=== PATIENT | female | born 1965 | race Caucasian/White ===

== ENCOUNTER 2021-03-18 15:48 | Observation (INO) ==
[2021-03-18] MEDS ORDERED: ONDANSETRON INJ 2 MG/ML 2 ML VIAL IV STA ×2 (16:55→20:56)
[2021-03-18] MEDS ORDERED: SODIUM CHLORIDE 0.9% 1000ML 1,000 ML IV ONE (16:55)
--- NOTE | 2021-03-18 16:58 | Emergency Department Note ---
Impression & Plan Acute appendicitis, Abdominal pain, Leukocytosis ED Provider Note NAME: MARIAH COHN AGE: 55 SEX: F : 1965 ARRIVES VIA: Walk-In INFORMANT: Patient ED PROVIDER(S): Ryley Chang DO CHIEF COMPLAINT: Abdominal pain HPI: Patient is a 55-year-old female who presents the ER for right mid abdominal pain. She notes she has been having nausea and upset stomach with eating for the past 2 weeks. Since this past Thursday she has been having severe pain righ t mid belly. Pain is a 7 out of 10. Referred in by PCP. She admits to nausea and vomiting. She is unable to keep anything down. Last bowel movement was yesterday. Denies any dysuria, urgency, or frequency. Last menstrual period was several years ago. No fevers. ROS: See above HPI for pertinent positives & negatives. A total of 10 systems reviewed and were otherwise negative. PAST MEDICAL HISTORY:See Below PAST SURGICAL HISTORY:See Below FAMILY HISTORY:See Below SOCIAL HISTORY:See Below HOME MEDICATIONS:See Below ALLERGIES:See Below VITALS:See Below PHYSICAL EXAMINATION: GENERAL: Sitting up in bed, alert, Ill-appearing, disheveled, moderate distress EYE EXAM: normal conjunctiva. OROPHARYNX: no exudate, no erythema, lips, buccal mucosa, and tongue normal and mucous membranes are moist NECK: supple, no nuchal rigidity, no adenopathy, non-tender LUNGS: Clear to auscultation. Normal chest wall mechanics HEART: no murmurs, S1 normal and S2 normal ABDOMEN: abdomen soft, Tender palpation right mid belly, normo-active bowel sounds, no masses, no rebound or guarding. UPPER EXTREMITIES: upper extremities are grossly normal. LOWER EXTREMITIES: No pitting edema. NEURO EXAM: Normal sensorium, cranial nerves II-XII grossly intact, normal speech, no gross weakness of arms, no gross weakness of legs. MEDICAL DECISION MAKING: Patient is a 55-year-old female who presents ER for right lower quadrant abdominal pain. IV was established blood work was obtained. Labs show leukocytosis 15,000. No significant anemia.BMP with LFTs bilirubin and lipase is unremarkable. UA was contaminated. Will not treat. Covid was negative. CT abdomen pelvis shows appendicitis. Patient was given IV fluids, morphine and cefoxitin. Patient was updated bedside. Discussed with Tonio Millard from general surgery who evaluated the patient admit the patient will likely take to the OR. Triage Nursing notes reviewed. Limited review of prior medical records performed Vital Signs: reviewed and remarkable for HTN and tachy Differential diagnosis: Differential diagnoses includes but is not limited to gastritis, peptic ulcer di sease, GERD, gallbladder disease, pancreatitis, small bowel obstruction, acute coronary syndrome, pericarditis, ischemic bowel, irritable bowel disease, irritable bowel syndrome, appendicitis, diverticulitis, malignancy, hernia, urinary tract infection, torsion, perforation, trauma, infectious. ER treatment provided: See below Diagnostics interpreted by me: ECG: none Cardiac Monitoring: An order was placed for continuous cardiac monitoring. The monitor shows a rate of 100 with sinus rhythm. Laboratory studies: As stated above and show below. Imaging studies: CT abdomen pelvis confirms appendicitis Consultation(s): Discussed with Tonio Millard for further evaluation Procedures: none Critical Care: None Past Med/Surg History Medical History (Updated 03/18/21 @ 21:54 by Ryley Chang DO) Asthma Cigarette smoker Morbid obesity Social History Smoking Status: Current every day smoker Tobacco Type: Cigarettes Feels Safe at Home: Yes Allergies Allergies Allergy/AdvReac Type Severity Reaction Status Date / Time No Known Allergies Allergy Verified 03/18/21 18:28 Home Meds Home Medications Medication Instructions Recorded Confirmed acetaminophen 500 mg tablet 1,000 mg PO DIRECTED PRN 03/18/21 03/18/21 (Tylenol Extra Strength) albuterol sulfate 90 mcg/actuation 2 puff INHALATION Q4H PRN 03/18/21 03/18/21 aerosol inhaler (Ventolin HFA) fluticasone 250 mcg-salmeterol 50 1 inh INHALATION BID PRN 03/18/21 03/18/21 mcg/dose blistr powdr for inhalation (Wixela Inhub) Results & Data (ED) Vital Signs Vital Signs - 24 hr 03/18/21 16:04 03/18/21 17:14 03/18/21 17:30 Temperature 36.6 C Temperature Source Temporal Artery Scan Pulse Rate 102 H 96 H Pulse Rate [Radial] 100 H Pulse Rate from SpO2 Sensor 96 H Respiratory Rate 20 20 22 Respiratory Effort / Characteristics Non-Labored Non-Labored Respiratory Depth Normal Normal Respiratory Pattern Regular Blood Pressure 172/110 H 157/99 H Blood Pressure [Left Arm] 150/91 H Blood Pressure Mean 130 118 Blood Pressure Mean [Left Arm] 110 Pulse Oximetry 96 98 94 Oxygen Delivery Method Room Air Room Air Sepsis Recent Fever Within 48 Hours No Sepsis New/Unexplained Change in Mental Status N/A Sepsis Action Taken by Nursing No Action Required 03/18/21 18:30 03/18/21 18:44 03/18/21 18:45 Temperature Temperature Source Pulse Rate 94 H 89 89 Pulse Rate [Radial] Pulse Rate from SpO2 Sensor 94 H Respiratory Rate 23 19 20 Respiratory Effort / Characteristics Respiratory Depth Respiratory Pattern Blood Pressure 159/105 H 159/105 H 171/121 H Blood Pressure [Left Arm] Blood Pressure Mean 123 123 137 Blood Pressure Mean [Left Arm] Pulse Oximetry 95 94 94 Oxygen Delivery Method Room Air Room Air Room Air Sepsis Recent Fever Within 48 Hours Sepsis New/Unexplained Change in Mental Status Sepsis Action Taken by Nursing 03/18/21 18:46 03/18/21 20:10 03/18/21 20:30 Temperature Temperature Source Pulse Rate 90 96 H 95 H Pulse Rate [Radial] Pulse Rate from SpO2 Sensor Respiratory Rate 18 21 24 Respiratory Effort / Characteristics Respiratory Depth Respiratory Pattern Blood Pressure 173/123 H 174/122 H 176/131 H Blood Pressure [Left Arm] Blood Pressure Mean 139 139 146 Blood Pressure Mean [Left Arm] Pulse Oximetry 95 96 95 Oxygen Delivery Method Room Air Room Air Room Air Sepsis Recent Fever Within 48 Hours Sepsis New/Unexplained Change in Mental Status Sepsis Action Taken by Nursing 03/18/21 21:00 03/18/21 21:30 Temperature Temperature Source Pulse Rate 93 H 93 H Pulse Rate [Radial] Pulse Rate from SpO2 Sensor 93 H Respiratory Rate 14 35 H Respiratory Effort / Characteristics Respiratory Depth Respiratory Pattern Blood Pressure 187/118 H 164/122 H Blood Pressure [Left Arm] Blood Pressure Mean 141 136 Blood Pressure Mean [Left Arm] Pulse Oximetry 95 90 Oxygen Delivery Method Room Air Room Air Sepsis Recent Fever Within 48 Hours Sepsis New/Unexplained Change in Mental Status Sepsis Action Taken by Nursing Laboratory Data Result diagrams: 03/18/21 17:01 03/18/21 17:01 Lab Results 03/18/21 03/18/21 03/18/21 Range/Units 17:01 17:01 17:01 WBC 15.97 H (4.8-10.8) K/uL RBC 5.22 (4.2-5.4) M/uL Hgb 16.9 H (12.0-16.0) g/dL Hct 49.5 H (37-47) % MCV 94.8 (80-100) fL MCH 32.4 (25-34) pg MCHC 34.1 (32-36) g/dL RDW Std Deviation 43.8 (36.4-46.3) fL RDW Coeff of [place] 12.7 (11.5-14.5) % Plt Count 256 (130-400) K/uL MPV 12.1 H (7.4-10.4) fL Sodium 139 (136-145) mmol/L Potassium 3.6 (3.5-5.1) mmol/L Chloride 101 (98-107) mmol/L Carbon Dioxide 31 (21-32) mmol/L Anion Gap 7 (3-11) BUN 16 (6-23) mg/dl Creatinine 0.95 (0.6-1.2) mg/dl Est Cr Clr Drug Dosing 72.5 ml/min Est GFR ( Amer) 77.6 ml/min Est GFR (Non-Af Amer) 67.0 ml/min BUN/Creatinine Ratio 16.8 (10-20) Glucose 107 H (70-99(Fasting)) mg/dl Calcium 9.5 (8.5-10.1) mg/dl Total Bilirubin 0.8 (0.2-1.0) mg/dl Direct Bilirubin 0.1 (0-0.2) mg/dl AST 15 (13-39) U/L ALT 17 (7-52) U/L Alkaline Phosphatase 64 (34-104) U/L Total Protein 7.3 (6.0-8.3) gm/dl Albumin 4.1 (3.4-5.0) gm/dl Lipase 25 (11-82) U/L Urine Color Urine Appearance (Clear) Urine pH (4.5-7.5) Ur Specific [place] (1.000-1.030) Urine Protein (Negative) Urine Glucose (UA) (Negative) Urine Ketones (Negative) Urine Blood (Negative) Urine Nitrite (Negative) Urine Bilirubin (Negative) Urine Urobilinogen (Negative) Ur Leukocyte Esterase (Negative) Urine WBC (Auto) (0-5) /hpf Urine RBC (Auto) (0-4) /hpf U Hyaline Cast (Auto) (0-5) /lpf U Epithel Cells (Auto) (0-5) /lpf Urine Bacteria (Auto) (Negative) SARS-CoV-2, RNA, NAAT (NEGATIVE) 03/18/21 03/18/21 Range/Units 17:07 20:15 WBC (4.8-10.8) K/uL RBC (4.2-5.4) M/uL Hgb (12.0-16.0) g/dL Hct (37-47) % MCV (80-100) fL MCH (25-34) pg MCHC (32-36) g/dL RDW Std Deviation (36.4-46.3) fL RDW Coeff of [place] (11.5-14.5) % Plt Count (130-400) K/uL MPV (7.4-10.4) fL Sodium (136-145) mmol/L Potassium (3.5-5.1) mmol/L Chloride (98-107) mmol/L Carbon Dioxide (21-32) mmol/L Anion Gap (3-11) BUN (6-23) mg/dl Creatinine (0.6-1.2) mg/dl Est Cr Clr Drug Dosing ml/min Est GFR ( Amer) ml/min Est GFR (Non-Af Amer) ml/min BUN/Creatinine Ratio (10-20) Glucose (70-99(Fasting)) mg/dl Calcium (8.5-10.1) mg/dl Total Bilirubin (0.2-1.0) mg/dl Direct Bilirubin (0-0.2) mg/dl AST (13-39) U/L ALT (7-52) U/L Alkaline Phosphatase (34-104) U/L Total Protein (6.0-8.3) gm/dl Albumin (3.4-5.0) gm/dl Lipase (11-82) U/L Urine Color Dark Yellow Urine Appearance Clear (Clear) Urine pH 5.5 (4.5-7.5) Ur Specific [place] 1.029 (1.000-1.030) Urine Protein 1+ H (Negative) Urine Glucose (UA) Negative (Negative) Urine Ketones Trace H (Negative) Urine Blood 1+ H (Negative) Urine Nitrite Negative (Negative) Urine Bilirubin 1+ H (Negative) Urine Urobilinogen Negative (Negative) Ur Leukocyte Esterase Negative (Negative) Urine WBC (Auto) 10-30 H (0-5) /hpf Urine RBC (Auto) 5-10 H (0-4) /hpf U Hyaline Cast (Auto) 0 (0-5) /lpf U Epithel Cells (Auto) >30 H (0-5) /lpf Urine Bacteria (Auto) 2+ H (Negative) SARS-CoV-2, RNA, NAAT NEGATIVE (NEGATIVE) Administered Medications Lactated Ringer's (Lr) 1,000 mls @ 75 mls/hr IV .[id number] [id number] Stop: 04/17/21 20:44 Last Admin: 03/18/21 21:36 Dose: 75 mls/hr Documented by: [id number] Discontinued Medications Sodium Chloride (Nss 1000ml) 1,000 mls @ 999 mls/hr IV .[id number] ONE Stop: 03/18/21 17:55 Last Infusion: 03/18/21 18:10 Dose: 0 mls/hr Documented by: [id number] Admin: 03/18/21 17:09 Dose: 999 mls/hr Documented by: [id number] Cefoxitin Sodium (Mefoxin) 2,000 mg in 60 mls @ 100 mls/hr IV NOW STA Stop: 03/18/21 20:29 Last Infusion: 03/18/21 20:46 Dose: 0 mls/hr Documented by: [id number] Admin: 03/18/21 20:10 Dose: 100 mls/hr Documented by: [id number] Ioversol (Optiray 320 100ml) 94 ml IV ONCE ONE Stop: 03/18/21 19:05 Last Admin: 03/18/21 19:05 Dose: 94 ml Documented by: [id number] Morphine Sulfate (Morphine Sulfate 10 Mg/Ml Carp/Vial) 6 mg IV NOW STA Stop: 03/18/21 20:57 Last Admin: 03/18/21 21:14 Dose: 6 mg Documented by: [id number] Ondansetron HCl (Ondansetron Inj 2 Mg/Ml 2 Ml Vial) 4 mg IV NOW STA Stop: 03/18/21 16:56 Last Admin: 03/18/21 17:09 Dose: 4 mg Documented by: [id number] Ondansetron HCl (Ondansetron Inj 2 Mg/Ml 2 Ml Vial) 4 mg IV NOW STA Stop: 03/18/21 20:57 Last Admin: 03/18/21 21:15 Dose: 4 mg Documented by: [id number] Imaging Data Radiologist's Impression: Abdomen/Pelvis CT 03/18/21 16:55 CT OF THE ABDOMEN AND PELVIS WITH CONTRAST CLINICAL HISTORY: Severe right-sided abdominal pain. COMPARISON STUDY: None. TECHNIQUE: Following IV administration of 94 mL of Optiray, axial images of the abdomen and pelvis were obtained from the lung bases to the proximal femurs. Images were reviewed in the axial, sagittal, and coronal planes. IV contrast was administered without complication. Automated exposure control was utilized for the study. A dose lowering technique was utilized adhering to the principles of ALARA. CT DOSE: 1601.21 mGy.cm FINDINGS: Lung bases are unremarkable. No pneumatosis, free air or portal venous gas is present. There is hepatic steatosis. No biliary or pancreatic ductal dilatation is present. The spleen, adrenal glands, kidneys and pancreas are unremarkable. There may be mild scarring within the left kidney. There is no hydronephrosis. There is no evidence for a bowel obstruction. The appendix is dilated, measuring 1 cm in caliber. There is moderate periappendiceal infiltration. No free air or abscess is present. No abdominal or pelvic lymphadenopathy is present. There is no evidence for a bowel obstruction. Major vasculature is patent. IMPRESSION: Findings consistent with acute appendicitis. No free air or abscess. ACT 112: Negative or not required by law. Electronically signed by: Killian Gusman M.D. 03/18/2021 7:50 PM Chest X-Ray 03/18/21 20:39 XR chest 1V portable CLINICAL HISTORY: Preoperative evaluation. COMPARISON STUDY: Chest CT January 04, 2016. FINDINGS: Lung volumes are normal. Lungs are clear. There is no pneumothorax or pleural effusion. Mild cardiomegaly is noted. Mediastinal contours are normal. There is no evidence for pulmonary edema. IMPRESSION: No acute cardiopulmonary findings. ACT 112: Negative or not required by law. Electronically signed by: Killian Gusman M.D. 03/18/2021 8:51 PM Discharge Plan Visit Data Chief Complaint: Flank Pain Stated Complaint: LOWER BACK PAIN, R. SIDE STOMACH PAIN ED Provider: Ryley Chang Discharge Problem: Acute appendicitis, Abdominal pain, Leukocytosis Forms Stand Alone Forms: [facility] Prescriptions Prescriptions: No Action fluticasone propion-salmeterol [Wixela Inhub] 250-50 mcg/dose blister with device 1 inh INHALATION BID PRN (Reason: Shortness Of Breath) RF: 0 acetaminophen [Tylenol Extra Strength] 500 mg Tablet 1,000 mg PO DIRECTED PRN (Reason: FEVER/PAIN) RF: 0 albuterol sulfate [Ventolin HFA] 90 mcg/actuation HFA aerosol inhaler 2 puff INHALATION Q4H PRN (Reason: Shortness Of Breath) RF: 0 Referrals Referrals: Gurdeep Gilliam DO [Physician] -
[2021-03-18 17:19] LABS: Hematocrit (blood only) 49.5 % (37-47); Hemoglobin 16.9 g/dL (12.0-16.0); Mean Corpuscular Hemoglobin 32.4 pg (25-34); Mean Corpuscular Hgb Conc 34.1 g/dL (32-36); Mean Corpuscular Volume 94.8 fL (80-100); Mean Platelet Volume 12.1 fL (7.4-10.4); Platelet Count 256 K/uL (130-400); RDW Coefficient of Variation 12.7 % (11.5-14.5); RDW Standard Deviation 43.8 fL (36.4-46.3); Red Blood Count 5.22 M/uL (4.2-5.4); White Blood Count 15.97 K/uL (4.8-10.8)
[2021-03-18 17:28] LABS: Appearance Urine Clear (Clear); Bacteria Urine Automated 2+ (Negative); Blood Urine 1+ (Negative); Color Urine Dark Yellow; Epithelial Cell Urine Auto >30 /lpf (0-5); Glucose Urine UA Negative (Negative); Ketones Urine Trace (Negative); Leukocyte Esterase Urine Negative (Negative); Nitrite Urine Negative (Negative); Protein Urine 1+ (Negative); Specific Gravity Urine 1.029 (1.000-1.030); Urobilinogen Urine Negative (Negative); pH Urine 5.5 (4.5-7.5)
[2021-03-18 17:42] LABS: Bilirubin Urine 1+ (Negative)
[2021-03-18 17:43] LABS: BUN Creatinine Ratio 16.8 (10-20); Calcium 9.5 mg/dl (8.5-10.1); Creatinine Clr Calc Pharmacy 72.5 ml/min; Est GFR (African American) 77.6 ml/min; Potassium 3.6 mmol/L (3.5-5.1)
[2021-03-18 17:53] LABS: Cast Urine Automated 0 /lpf (0-5)
[2021-03-18] MEDS ORDERED: OPTIRAY 320 100ml IV ONE (19:04)
--- NOTE | 2021-03-18 19:52 | CT Scan Report ---
CT OF THE ABDOMEN AND PELVIS WITH CONTRAST CLINICAL HISTORY: Severe right-sided abdominal pain. COMPARISON STUDY: None. TECHNIQUE: Following IV administration of 94 mL of Optiray, axial images of the abdomen and pelvis we re obtained from the lung bases to the proximal femurs. Images were reviewed in the axial, sagittal, and coronal planes. IV contrast was administered without complication. Automated exposure control wa s utilized for the study. A dose lowering technique was utilized adhering to the principles of ALARA . CT DOSE: 1601.21 mGy.cm FINDINGS: Lung bases are unremarkable. No pneumatosis, free air or portal venous gas is present. Ther e is hepatic steatosis. No biliary or pancreatic ductal dilatation is present. The spleen, adrenal gl ands, kidneys and pancreas are unremarkable. There may be mild scarring within the left kidney. There is no hydronephrosis. There is no evidence for a bowel obstruction. The appendix is dilated, measuri ng 1 cm in caliber. There is moderate periappendiceal infiltration. No free air or abscess is present . No abdominal or pelvic lymphadenopathy is present. There is no evidence for a bowel obstruction. [place] vasculature is patent. IMPRESSION: Findings consistent with acute appendicitis. No free air or abscess. ACT 112: Negative or not required by law. Electronically signed by: Killian Gusman M.D. 03/18/2021 7:50 PM
[2021-03-18] MEDS ORDERED: cefOXitin 2,000 MG/60 ML BAG IV STA (19:54)
[2021-03-18 20:20] LABS: Albumin Level 4.1 gm/dl (3.4-5.0); Bilirubin Direct 0.1 mg/dl (0-0.2); Bilirubin,Total 0.8 mg/dl (0.2-1.0); Total Protein 7.3 gm/dl (6.0-8.3)
--- NOTE | 2021-03-18 20:52 | XRay Report ---
XR chest 1V portable CLINICAL HISTORY: Preoperative evaluation. COMPARISON STUDY: Chest CT January 04, 2016. FINDINGS: Lung volumes are normal. Lungs are clear. There is no pneumothorax or pleural effusion. Mil d cardiomegaly is noted. Mediastinal contours are normal. There is no evidence for pulmonary edema. IMPRESSION: No acute cardiopulmonary findings. ACT 112: Negative or not required by law. Electronically signed by: Killian Gusman M.D. 03/18/2021 8:51 PM
--- NOTE | 2021-03-18 20:55 | History & Physical Report ---
Date of Service March 18, 2021 Assessment & Plan (1) Acute appendicitis: Plan: Due to the patient's labs, imaging, and clinical presentation will admit her to the hospital and proceed as follows: Analgesia will be provided Antiemetics will be provided We will provide antibiotics. Treat emergency room physician has already initiated cefoxitin We will provide IV fluid for hydration We will maintain n.p.o. status We will plan on a appendectomy later this evening. I consented the patient for laparoscopic, possible open appendectomy. I have outlined the risks, benefits, and alternatives with the patient and she wishes to proceed. I discussed the expected postoperative recovery course. Additional recommendation be forthcoming based on operative findings and her postoperative recovery thereafter We will use SCDs for DVT prevention. Would avoid chemical means due to planned surgery Patient be a level 1 full code History of Present Illness Chief Complaint: Abdominal pain Primary Care Provider: ELOY PCP This is a 55-year-old female who presented to the emergency department secondary to abdominal pain that began approximately 3 days ago. Patient says that the pain was primarily periumbilical but has since shifted to the right lower quadrant. She has had associated nausea vomiting. She denies any fevers but has had chills. She notes that her most recent meal earlier this morning and she did drink some iced tea at approximately noon today. Has had no prior abdominal surgeries other than a . She notes that the pain does not radiate and she does not note any provocative factors. She notes that the pain is palliated somewhat with medicines that were administered in the emergency department. In the emergency department patient had labs and imaging which I independently reviewed. She did undergo a CT scan abdomen pelvis that showed findings consistent with acute appendicitis. Pennex was noted be dilated to approximately 1 cm. There is periappendiceal infiltration however no free air or abscess was noted. Chest x-ray showed no evidence of pneumonia. CBC showed her white blood cell count was elevated at 15.9. Hemoglobin and hematocrit were 16.9 and 49.5. Platelet count was noted be within normal range. Chemistry profile showed sodium, potassium, BUN, and creatinine were all within normal range. There is no significant elevation of her LFTs or lipase. Urinalysis did show 10-30 white blood cells per high-power field. A Covid test was noted to be negative. Patient does report that she smokes approximate 1 pack cigarettes per day and has done so for years. She says she does lead an active lifestyle and with her activities of daily living she does not get any chest pain or exertional dyspnea. At the time of my interview the patient was resting comfortably in bed she was in no distress. Allergies Allergy/AdvReac Type Severity Reaction Status Date / Time No Known Allergies Allergy Verified 03/18/21 18:28 Home Medications Medication Instructions Recorded Confirmed Type acetaminophen 500 mg tablet 1,000 mg PO DIRECTED PRN 03/18/21 03/18/21 History (Tylenol Extra Strength) albuterol sulfate 90 mcg/actuation 2 puff INHALATION Q4H PRN 03/18/21 03/18/21 History aerosol inhaler (Ventolin HFA) fluticasone 250 mcg-salmeterol 50 1 inh INHALATION BID PRN 03/18/21 03/18/21 History mcg/dose blistr powdr for inhalation (Wixela Inhub) Past Med/Surg History Social History Smoking Status: Current every day smoker Tobacco Type: Cigarettes Feels Safe at Home: Yes Review of Systems Constitutional: + chills; no fever Eyes: no diplopia Ear, Nose, Mouth, Throat: no ear pain Respiratory: no cough and no dyspnea Cardiovascular: no chest pain Gastrointestinal: + abdominal pain, + nausea and + vomiting Genitourinary: no dysuria Musculoskeletal: no back pain Integumentary: no rash Neurologic: no localized weakness Physical Exam Constitutional: well developed and well nourished; no acute distress Eyes: no conjunctival abnormality ENMT: Ears: no hearing impairment Neck: trachea midline Respiratory: normal respiratory effort, lungs clear to auscultation Cardiovascular: Rate/Rhythm: regular rate and regular rhythm Gastrointestinal (Abdomen): Abdomen is soft with mild distention. There is some tympany noted to percussion. There is no rebound tenderness or guarding but patient did have pain with palpation in the right lower quadrant over McBurney's point. Musculoskeletal: No calf tenderness Skin: no rashes Neurologic: moves all extremities Psychiatric: A+Ox3, euthymic affect Results & Data Results & Data ([facility]) Vital Signs (Past 12 Hours) Vital Signs Temp Pulse Pulse Resp BP BP Pulse Ox 03/18/21 18:46 90 18 173/123 H 95 02/07/22 18:45 89 20 171/121 H 94 03/18/21 18:44 89 19 159/105 H 94 03/18/21 18:30 94 H 23 159/105 H 95 03/18/21 17:30 96 H 22 157/99 H 94 03/18/21 17:14 100 H 20 150/91 H 98 03/18/21 16:04 36.6 C 102 H 20 172/110 H 96 Supervising Physician Co-Signing Physician Notes I personally saw and examined the patient with [place] PA-C and agree with the assessment and plan. 55-year-old female with acute appendicitis CT images and results reviewed, consistent with acute appendicitis We will admit to surgical team keep n.p.o. and start IV fluids and IV antib iotics We will take her to the operating room later tonight for laparoscopic appendectomy, possible open Consent obtained, risks discussed including bleeding, infection, abscess, leak PG Care Time/CCT Total # of Minutes Spent Total Time Spent with Patient: Total time spent is greater than 50% in coordination of care (as documented) at patient's floor/unit and/or counseling patient: Coding Level of Care Code INT OBSERVATION CARE 70M LVL 3 Diagnoses Acute appendicitis K35.80
[2021-03-18] MEDS ORDERED: MoRPHine SULFATE 10 MG/ML CARP/VIAL IV STA (20:56)
[2021-03-18] MEDS: LACTATED RINGER'S 1,000 ML IV SCH (21:36)
[2021-03-18] MEDS ORDERED: MEPERIDINE HCL 25 MG/ML CARP/VIAL IV PRN (23:06)
[2021-03-18] MEDS ORDERED: ONDANSETRON INJ 2 MG/ML 2 ML VIAL IV PRN (23:06)
[2021-03-18] MEDS ORDERED: PHENYLEPHRINE 100MCG/ML 5ML SYR IV PRN (23:06)
[2021-03-18] MEDS ORDERED: ePHEDrine sulfate 50 MG/ML AMP IV PRN (23:06)
[2021-03-18] MEDS ORDERED: HYDROmorphone INJ 1 MG/ML SYRINGE IV PRN (23:06)
[2021-03-18] MEDS ORDERED: ATROPINE SULFATE 0.1 MG/ML 10ML SYR IV PRN (23:06)
[2021-03-18] MEDS ORDERED: LABETALOL HCL IV 5 MG/ML 20ML IV PRN (23:06)
[2021-03-18] MEDS ORDERED: fentaNYL citrate 100 MCG/2 ML VIAL IV PRN (23:06)
--- NOTE | 2021-03-18 23:07 | Anesthesiology Consultation ---
Date of Service March 18, 2021 Assessment & Plan (1) Encounter for pre-operative examination: Chart Review Chart Review: Acceptable Risk for Surgery and Patient NOT seen in Pre Admission Testing Consults Requested none History Surgery Operation Date: 03/18/21 23:30 Proposed Procedures p Laparoscopic Appendectomy, Possible Open(Not Applicable) - Gilberto Millard DO Height/Weight Height: 5 ft 1 in Weight: 102 kg Allergies Allergy/AdvReac Type Severity Reaction Status Date / Time No Known Allergies Allergy Verified 03/18/21 18:28 Medications Home Medications Medication Instructions Recorded Confirmed Last Taken acetaminophen 500 mg tablet 1,000 mg PO DIRECTED PRN 03/18/21 03/18/21 Unknown (Tylenol Extra Strength) albuterol sulfate 90 mcg/actuation 2 puff INHALATION Q4H PRN 03/18/21 03/18/21 Unknown aerosol inhaler (Ventolin HFA) fluticasone 250 mcg-salmeterol 50 1 inh INHALATION BID PRN 03/18/21 03/18/21 Unk nown mcg/dose blistr powdr for inhalation (Wixela Inhub) Active Medications Generic Name Dose Route Start Last Admin Trade Name Freq PRN Reason Stop Dose Admin Lactated Ringer's 1,000 mls @ 75 mls/hr 03/18/21 20:45 03/18/21 21:36 Lr IV 04/17/21 20:44 75 mls/hr .[id number] TNAVI Administration Past Medical History Medical History Asthma Cigarette smoker Morbid obesity Social History Smoking Status: Current every day smoker Physical Exam Vital Signs Last Vital Signs Temp 36.6 C 03/18/21 16:04 Pulse 93 H 03/18/21 21:30 Resp 35 H 03/18/21 21:30 BP 164/122 H 03/18/21 21:30 Pulse Ox 90 03/18/21 21:30 Testing Laboratory Results 03/18/21 17:01 03/18/21 17:01 Urine Color Dark Yellow 03/18/21 17:07 Urine Appearance Clear (Clear) 03/18/21 17:07 Urine pH 5.5 (4.5-7.5) 03/18/21 17:07 Ur Specific [place] 1.029 (1.000-1.030) 03/18/21 17:07 Urine Protein 1+ (Negative) H 03/18/21 17:07 Urine Glucose (UA) Negative (Negative) 03/18/21 17:07 Urine Ketones Trace (Negative) H 03/18/21 17:07 Urine Nitrite Negative (Negative) 03/18/21 17:07 Ur Leukocyte Esterase Negative (Negative) 03/18/21 17:07 Urine WBC (Auto) 10-30 /hpf (0-5) H 03/18/21 17:07 Urine RBC (Auto) 5-10 /hpf (0-4) H 03/18/21 17:07 U Hyaline Cast (Auto) 0 /lpf (0-5) 03/18/21 17:07 U Epithel Cells (Auto) >30 /lpf (0-5) H 03/18/21 17:07 Urine Bacteria (Auto) 2+ (Negative) H 03/18/21 17:07 Electrocardiogram Date: 03/18/21 Findings: + NSR @ (90) Chest X-Ray Date: 03/18/21 XR chest 1V portable CLINICAL HISTORY: Preoperative evaluation. COMPARISON STUDY: Chest CT January 04, 2016. FINDINGS: Lung volumes are normal. Lungs are clear. There is no pneumothorax or pleural effusion. Mild cardiomegaly is noted. Mediastinal contours are normal. T here is no evidence for pulmonary edema. IMPRESSION: No acute cardiopulmonary findings. ACT 112: Negative or not required by law. Electronically signed by: Killian Gusman M.D. 03/18/2021 8:[address] OF THE ABDOMEN AND PELVIS WITH CONTRAST CLINICAL HISTORY: Severe right-sided abdominal pain. COMPARISON STUDY: None. TECHNIQUE: Following IV administration of 94 mL of Optiray, axial images of the abdomen and pelvis were obtained from the lung bases to the proximal femurs. Images were reviewed in the axial, sagittal, and coronal planes. IV contrast was administered without complication. Automated exposure control was utilized for the study. A dose lowering technique was utilized adhering to the principles of ALARA. CT DOSE: 1601.21 mGy.cm FINDINGS: Lung bases are unremarkable. No pneumatosis, free air or portal venous gas is present. There is hepatic steatosis. No biliary or pancreatic ductal dilatation is present. The spleen, adrenal glands, kidneys and pancreas are unremarkable. There may be mild scarring within the left kidney. There is no hydronephrosis. There is no evidence for a bowel obstruction. The appendix is dilated, measuring 1 cm in caliber. There is moderate periappendiceal infiltration. No free air or abscess is present. No abdominal or pelvic lymphadenopathy is present. There is no evidence for a bowel obstruction. Major vasculature is patent. IMPRESSION: Findings consistent with acute appendicitis. No free air or abscess. ACT 112: Negative or not required by law. Electronically signed by: Killian Gusman M.D. 03/18/2021 7:50 PM Dictated:03/18/211945 Transcribed: 03/18/211945
[2021-03-18] MEDS ORDERED: BUPIVACAINE/EPINEPHRINE 0.25% 1:200,000 30 ML VIAL ONE (23:12)
[2021-03-18] MEDS ORDERED: fentaNYL citrate 100 MCG/2 ML VIAL ONE (23:21)
[2021-03-18] MEDS ORDERED: LIDOCAINE 2% 2 ML VIAL/AMP(20MG/ML) INFIL ONE ×2 (23:21→23:25)
[2021-03-18] MEDS ORDERED: SUCCINYLCHOLINE CHLORIDE 20 MG/ML 10 ML VIAL IV ONE (23:24)
[2021-03-18] MEDS ORDERED: ROCURONIUM BROMIDE 10 MG/ML 5 ML VIAL IV ONE (23:25)
[2021-03-18] MEDS ORDERED: ONDANSETRON INJ 2 MG/ML 2 ML VIAL ONE (23:26)
[2021-03-18] MEDS ORDERED: DEXAMETHASONE SOD INJ 4 MG/ML VIAL ONE (23:26)
[2021-03-19] MEDS ORDERED: NEOSTIGMINE METHYLSULFATE 1 MG/ML 10ML VIAL ONE
[2021-03-19] MEDS ORDERED: GLYCOPYRROLATE 0.2 MG/ML VIAL ONE
--- NOTE | 2021-03-19 00:33 | Post Operative Brief Note ---
PG Immediate Post Op with CF Date of Surgery March 19, 2021 Pre & Post Diagnosis Operation Date: 03/18/21 23:30 Pre-Op Diagnosis: Acute Appendicitis Post-Op Diagnosis: Acute Gangrenous Appendicitis I identified the patient and participated in the time-out.: Yes Procedure Operation Date: 03/18/21 23:30 Actual Procedures p Laparoscopic Appendectomy(Not Applicable) - Gilberto Millard DO Surgeon Gilberto Millard DO Pig Casting Machine Operator [place] PA-C Estimated Blood Loss 10 Findings See Below Gangrenous appendix with healthy appearing base Specimens Specimen Description: A: Appendix Drains Young Catheter (Young catheter inserted by JUSTIN Infante without difficulty. Urine return was clear, yellow.) Complications none Disposition Disposition: Recovery Room
--- NOTE | 2021-03-19 00:37 | Operative Report ---
PG Post Operative Report Pre & Post Diagnosis Operation Date: 03/18/21 23:30 Pre-Op Diagnosis: Acute Appendicitis Post-Op Diagnosis: Acute Gangrenous Appendicitis I identified the patient and participated in the time-out.: Yes Procedure Operation Date: 03/18/21 23:30 Actual Procedures p Laparoscopic Appendectomy(Not Applicable) - Gilberto Millard DO Surgeon Gilberto Millard DO President And Chief Commercial Officer [place] PA-C Estimated Blood Loss 10 Findings See Below Gangrenous appendix with healthy appearing base Specimens Appendix to pathology Drains None Anesthesia Type General Complications none Disposition Disposition: Recovery Room Indications 55-year-old female with acute appendicitis Description of Procedure The patient was brought to the OR and placed in the supine position and SCD's placed. At this time she underwent general endotracheal anesthesia without incident. At this time a Young catheter was placed under sterile conditions. Her abdomen was prepped and draped in the usual sterile fashion. She was given appropriate pre-operative antibiotics. A timeout was called, the procedure was verified as Laparoscopic appendectomy, possible open. Surgical, anesthesia and nursing teams agreed and the procedure was begun. After injection of 0.25% Marcaine with epinephrine, a supraumbilical incision was made using a #11 blade scalpel and carried down to the fascia with a hemostat. The abdomen was then elevated with towel clamps and entered using the Veress needle confirming position using the saline drop test. Pneumoperitoneum was established and 5mm trocar was placed. Laparoscope was introduced. No injury was seen from our entrance to the abdomen. At this time a 5mm suprapubic port and 12mm LLQ port were placed under direct visualization. The patient was placed in Trendelenburg and rotated to the left. At this time the appendix was visualized and the tip was freed and elevated toward the abdominal wall. The appendix appeared gangrenous with edema of the mesoappendix. The base was found and appeared healthy. A window was created in the mesoappendix at the base of the appendix. A 45mm purple load stapler was then fired across the base of the appendix which appeared healthy. The mesoappendix was then taken using Harmonic device. The appendix was then placed in an Endocatch bag and removed through the LLQ port site. Staple line was inspected and was intact. Hemostasis was complete. The 12 mm port was then closed at the fascial level using a 0 Vicryl suture using the suture passer. All ports were removed under direct visualization and no bleeding was noted. The abdomen was desufflated and the skin was closed using 4-0 Monocryl in a subcuticular fashion. Sterile dressings were applied. Young catheter was removed. The patient was then awakened from anesthesia having remained stable throughout the entire case and transported to PACU. All needle and sponge counts were correct x 2. The physician executive staff assistant was present and scrubbed for the entire case. He was essential in positioning, prepping and draping the patient, driving the laparoscope, retraction and exposure, closure of the incisions and placement of the dressings. I attest to the content of the Intraoperative Record and any orders documented therein. Any exceptions are noted below.
[2021-03-19] MEDS ORDERED: SUGAMMADEX SODIUM 200 MG/2 ML VIAL IV ONE (00:42)
[2021-03-19] MEDS ORDERED: fentaNYL citrate 100 MCG/2 ML VIAL ONE (01:07)
--- NOTE | 2021-03-19 01:12 | Anesthesiology Progress Note ---
Date of Service March 19, 2021 Anesthesia Post Procedure Vital Signs Vital Signs: Temp Pulse Pulse Pulse Resp BP BP 03/19/21 01:10 75 20 122/76 03/19/21 01:00 73 18 141/89 H 03/19/21 00:50 36.1 C L 80 16 144/91 H 03/18/21 21:30 93 H 35 H 164/122 H 03/18/21 21:00 93 H 14 187/118 H 03/18/21 20:30 95 H 24 176/131 H 03/18/21 20:10 96 H 21 174/122 H 03/18/21 18:46 90 18 173/123 H 03/18/21 18:45 89 20 171/121 H 03/18/21 18:44 89 19 159/105 H 03/18/21 18:30 94 H 23 159/105 H 03/18/21 17:30 96 H 22 157/99 H 03/18/21 17:14 100 H 20 150/91 H 03/18/21 16:04 36.6 C 102 H 20 172/110 H Pulse Ox 03/19/21 01:10 94 03/19/21 01:00 95 03/19/21 00:50 96 03/18/21 21:30 90 03/18/21 21:00 95 03/18/21 20:30 95 03/18/21 20:10 96 03/18/21 18:46 95 03/18/21 18:45 94 03/18/21 18:44 94 03/18/21 18:30 95 03/18/21 17:30 94 03/18/21 17:14 98 03/18/21 16:04 96 Pain Intensity Bilateral Abdomen: Pain Intensity: 2 Transfer of Care Handoff Completed per policy Notes Mental Status: alert / awake / arousable Patient Amnestic to Procedure: Yes Nausea / Vomiting: adequately controlled Pain: adequately controlled Airway Patency, RR, SpO2: stable & adequate BP & HR: stable & adequate Hydration State: stable & adequate Anesthetic Complications: no major complications apparent and Pt Satisfied with anesthetic care
[2021-03-19] MEDS ORDERED: MoRPHine SULFATE 2 MG/ML CARP IV PRN (01:43)
[2021-03-19] MEDS ORDERED: ONDANSETRON INJ 2 MG/ML 2 ML VIAL IV PRN (01:43)
[2021-03-19] MEDS ORDERED: ACETAMINOPHEN 1,000 MG/100 ML VIAL IV PRN (01:43)
[2021-03-19] MEDS ORDERED: ALBUTEROL HFA 8 GM INHALER INH PRN (01:43)
[2021-03-19] MEDS ORDERED: FLUTICASONE/VILANTEROL 100/25MCG 14 PUFFS/INHALER INH PRN (02:03)
[2021-03-19] MEDS: cefOXitin 2,000 MG in DEXTROSE 5% 50 ML IV SCH ×3 (02:15→13:49)
[2021-03-19] MEDS: LACTATED RINGER'S 1,000 ML IV SCH (07:35)
--- NOTE | 2021-03-19 09:49 | Surgery Progress Note ---
Date of Service March 19, 2021 Assessment & Plan (1) Acute appendicitis: Plan: Overall patient looks good postoperative day 1 laparoscopic appendectomy for gangrenous appendicitis We will advance her diet as tolerated Pain control as needed Continue IV antibiotics She is okay for discharge if she tolerates regular food for lunch and will be sent with a 10-day course of Augmentin Admission and Anticipated Discharge Date Admission Date: March 18, 2021 Subjective Patient seen and examined. Tolerating clears. Pain controlled. Afebrile. Vital signs stable. She has been ambulating without issue. Physical Exam Constitutional: WD/WN, vitals as above Gastrointestinal (Abdomen): Soft, appropriately tender Surgical incisions with mild ecchymosis Results & Data ([facility]) Vital Signs (Past 12 Hours) Vital Signs Temp Pulse Pulse Resp BP Pulse Ox 03/19/21 08:02 37.1 C 93 H 16 138/86 91 03/19/21 04:02 88 132/85 92 03/19/21 03:30 36.9 C 94 H 20 156/100 H 92 03/19/21 02:30 36.8 C 90 20 125/82 94 03/19/21 02:01 36.8 C 72 18 133/84 92 03/19/21 01:30 36.9 C 63 18 123/82 92 03/19/21 01:20 36.4 C L 72 19 124/76 96 03/19/21 01:10 75 20 122/76 94 03/19/21 01:00 73 18 141/89 H 95 03/19/21 00:50 36.1 C L 80 16 144/91 H 96 PG Care Time/CCT Total # of Minutes Spent Total Time Spent with Patient: Total time spent is greater than 50% in coordination of care (as documented) at patient's floor/unit and/or counseling patient: Coding Level of Care Code None Diagnoses Acute appendicitis K35.30 Acute appendicitis type: with localized peritonitis Appendicitis abscess presence: unspecified whether abscess present Appendicitis gangrene presence: unspecified whether gangrene present Appendicitis perforation presence: unspecified whether perforation present (1) Acute appendicitis Acute appendicitis type: with localized peritonitis Appendicitis abscess presence: unspecified whether abscess present Appendicitis gangrene presence: unspecified whether gangrene present Appendicitis perforation presence: unspecified whether perforation present Qualified Code(s): K35.30 - Acute appendicitis with localized peritonitis, without perforation or gangrene
[2021-03-19] MEDS ORDERED: oxyCODONE HCL IR 5 MG TAB (IMMEDIATE RELEASE) PO PRN (13:30)
--- NOTE | 2021-03-19 22:51 | Electrocardiogram Report ---
Test Reason : Blood Pressure : / mmHG Vent. Rate : 090 BPM Atrial Rate : 090 BPM P-R Int : 180 ms QRS Dur : 096 ms QT Int : 364 ms P-R-T Axes : 063 055 053 degrees QTc Int : 445 ms Normal sinus rhythm Normal ECG No previous ECGs available Confirmed by Naseem Pretty ([id number]) on 03/19/2021 10:51:09 PM Referred By: REFERRED SELF Confirmed By:Naseem Pretty
--- NOTE | 2021-03-20 20:14 | Discharge Summary ---
Date of Service March 20, 2021 Admission HPI Per Admitting Provider This is a 55-year-old female who presented to the emergency department secondary to abdominal pain that began approximately 3 days ago. Patient says that the pain was primarily periumbilical but has since shifted to the right lower quadrant. She has had associated nausea vomiting. She denies any fevers but has had chills. She notes that her most recent meal earlier this morning and she did drink some iced tea at approximately noon today. Has had no prior abdominal surgeries other than a . She notes that the pain does not radiate and she does not note any provocative factors. She notes that the pain is palliated somewhat with medicines that were administered in the emergency department. In the emergency department patient had labs and imaging which I independently reviewed. She did undergo a CT scan abdomen pelvis that showed findings consistent with acute appendicitis. Pennex was noted be dilated to approximately 1 cm. There is periappendiceal infiltration however no free air or abscess was noted. Chest x-ray showed no evidence of pneumonia. CBC showed her white blood cell count was elevated at 15.9. Hemoglobin and hematocrit were 16.9 and 49.5. Platelet count was noted be within normal range. Chemistry profile showed sodium, potassium, BUN, and creatinine were all within normal range. There is no significant elevation of her LFTs or lipase. Urinalysis did show 10-30 white blood cells per high-power field. A Covid test was noted to be negative. Patient does report that she smokes approximate 1 pack cigarettes per day and has done so for years. She says she does lead an active lifestyle and with her activities of daily living she does not get any chest pain or exertional dyspnea. At the time of my interview the patient was resting comfortably in bed she was in no distress. Discharge Data Consultations 03/18/21 19:54 ED Decision to Admit Stat Procedures Performed Operation Date: 03/18/21 23:30 Actual Procedures p Laparoscopic Appendectomy(Not Applicable) - Gilberto Millard, Hospital Course (1) Acute appendicitis: Patient was admitted to [facility] in 03/18/[address] scan showed findings consistent with acute appendicitis. Date of admission patient underwent a laparoscopic appendectomy without difficulty. She was maintained on appropriate antibiotics during her hospital course and was deemed stable for discharge home on postop day #1 which is 03/19/2021. She was instructed on appropriate wound care, diet, and activity. She was told to follow-up with Dr. Millard in the office in approximate 1 to 2 weeks and was provided the office phone number to make this appointment. Coding Level of Care Code None Diagnoses Acute appendicitis K35.30 Acute appendicitis type: with localized peritonitis Appendicitis abscess presence: unspecified whether abscess present Appendicitis gangrene presence: unspecified whether gangrene present Appendicitis perforation presence: unspecified whether perforation present
== END 2021-03-19 16:45 | disposition home or self-care (01) ==
LOC: ED 15:48 → OR 23:05 → 3N 23:05